=== PATIENT | female | born 1995 | race African-American/Black ===

== ENCOUNTER 2018-09-27 15:59 | Inpatient (IN) | payer OTHER, MEDICAID ==
[2018-09-27] MEDS ORDERED: BUTORPHANOL 2 MG INJ IV ×2 (16:30)
[2018-09-27] MEDS ORDERED: CARBOPROST 250 MCG INJ IM (16:30)
[2018-09-27] MEDS ORDERED: OXYTOCIN 30 UNITS/LR 500 ML IV (16:30)
[2018-09-27] MEDS ORDERED: METHYLERGONOVINE 0.2 MG INJ IM (16:30)
[2018-09-27] MEDS ORDERED: LIDOCAINE 1% (MPF) 30 ML INJ INJ (16:30)
[2018-09-27] MEDS ORDERED: MISOPROSTOL 200 MCG TAB PR (16:30)
[2018-09-27 17:05] LABS: ADD MAN DIFF? NO
[2018-09-27 17:06] LABS: BASOPHILS % 0.2 % (0.0-2.0); EOSINOPHILS # 0.1 10^3/ul (0.0-0.5); EOSINOPHILS % 0.5 % (0.0-7.0); HEMATOCRIT 34.3 % (37.0-47.0); LYMPHOCYTES # 2.2 10^3/ul (0.8-2.9); LYMPHOCYTES % 16.6 % (15.0-51.0); MEAN CORPUSCULAR HEMOGLOBIN 27.1 pg (29.0-33.0); MEAN CORPUSCULAR HGB CONC 32.1 g/dl (32.0-37.0); MEAN CORPUSCULAR VOLUME 84.5 fl (82.0-101.0); MEAN PLATELET VOLUME 10.6 fl (7.4-10.4); MONOCYTE # 0.8 10^3/ul (0.3-0.9); MONOCYTES % 6.2 % (0.0-11.0); NEUTROPHIL # 9.9 10^3/ul (1.6-7.5); NEUTROPHILS % 76.2 % (39.0-77.0); PLATELET COUNT 278 10^3/UL (140-415); RED BLOOD COUNT 4.06 10^6/ul (4.20-5.40); RED CELL DISTRIBUTION WIDTH 16.3 % (11.5-14.5)
[2018-09-27 17:28] LABS: INR 0.86; PROTIME 11.8 Sec (11.9-14.9); PT RATIO 0.9
[2018-09-27 17:29] LABS: PARTIAL THROMBOPLASTIN TIME 25.6 Sec (23.0-35.0)
[2018-09-27] MEDS: LACTATED RINGER'S 1,000 ML IV ×3 (17:37→18:28)
[2018-09-27] MEDS ORDERED: FENTAnyl 2MCG/ML-ROPIV 0.2% 100 ML (18:12)
[2018-09-27] MEDS ORDERED: FENTAnyl 50 MCG/ML VIAL (18:12)
[2018-09-27 18:27] LABS: HEPATITIS B SURFACE ANTIGEN NEGATIVE (NEGATIVE)
[2018-09-27] MEDS ORDERED: NALOXONE (0.4 MG/ML) INJ IV (18:30)
[2018-09-27] MEDS: FAMOTIDINE 20 MG INJ IV (18:32)
[2018-09-27] MEDS: AMPICILLIN 2 GM/NS (PMX) 100 ML IV (18:37)
[2018-09-27 18:42] LABS: RAPID PLASMA REAGIN NONREACTIVE (NR)
[2018-09-27] MEDS: AMPICILLIN 1 GM/NS (PMX) 50 ML IV (22:18)
[2018-09-27] MEDS ORDERED: MINERAL OIL LIGHT 10 ML VIAL TOP (23:30)
[2018-09-28] MEDS: LACTATED RINGER'S 1,000 ML IV (00:11)
[2018-09-28 00:26] LABS: AMPHETAMINE/METHAMPHETAMINE Negative (NEGATIVE); BARBITURATES Negative (NEGATIVE); BENZODIAZEPINES Negative (NEGATIVE); CANNABINOIDS Positive (NEGATIVE); COCAINE Negative (NEGATIVE); OPIATES Negative (NEGATIVE)
[2018-09-28] MEDS: FENTAnyl 2MCG/ML-ROPIV 0.2% 100 ML BAG EPI (02:05)
[2018-09-28] MEDS: AMPICILLIN 1 GM/NS (PMX) 50 ML IV (03:35)
[2018-09-28] MEDS: OXYTOCIN 30 UNITS/LR 500 ML IV ×3 (03:35→08:58)
[2018-09-28] MEDS: FAMOTIDINE 20 MG INJ IV (04:20)
[2018-09-28] MEDS: ONDANSETRON 4 MG INJ IV (04:43)
[2018-09-28] MEDS: BENZOCAINE 20% 56 ML SPRAY TOP (06:46)
[2018-09-28] MEDS: LANOLIN HPA 1 PKT TOP (06:46)
[2018-09-28] MEDS: WITCH HAZEL/GLYCERIN PAD PR (06:46)
[2018-09-28] MEDS ORDERED: MISOPROSTOL 200 MCG TAB PR (07:00)
[2018-09-28] MEDS ORDERED: ZOLPIDEM 5 MG TAB PO (07:00)
[2018-09-28] MEDS ORDERED: OXYTOCIN 30 UNITS/LR 500 ML IV (07:00)
[2018-09-28] MEDS ORDERED: METHYLERGONOVINE 0.2 MG INJ IM (07:00)
[2018-09-28] MEDS ORDERED: CARBOPROST 250 MCG INJ IM (07:00)
[2018-09-28] MEDS ORDERED: OXYCODONE/ASPIRIN (4.88/325) TAB PO ×2 (07:00)
[2018-09-28] MEDS: SENNA/DOCUSATE NA (8.6MG/50MG) TAB PO ×2 (08:57→20:38)
[2018-09-28] MEDS ORDERED: IBUPROFEN 600 MG TAB PO (12:00)
[2018-09-28] MEDS: IBUPROFEN 600 MG TAB PO ×3 (12:54→23:45)
[2018-09-28] MEDS: CEPHALEXIN 500 MG CAP PO ×2 (14:49→20:38)
[2018-09-29] MEDS: CEPHALEXIN 500 MG CAP PO ×4 (03:27→20:45)
[2018-09-29] MEDS: IBUPROFEN 600 MG TAB PO ×4 (05:43→23:51)
[2018-09-29 08:35] LABS: ADD MAN DIFF? NO
[2018-09-29 08:46] LABS: BASOPHIL # 0.1 10^3/ul (0.0-0.1); BASOPHILS % 0.4 % (0.0-2.0); EOSINOPHILS # 0.2 10^3/ul (0.0-0.5); EOSINOPHILS % 1.6 % (0.0-7.0); HEMATOCRIT 33.7 % (37.0-47.0); HEMOGLOBIN 10.7 g/dl (12.0-16.0); LYMPHOCYTES # 3.6 10^3/ul (0.8-2.9); LYMPHOCYTES % 31.7 % (15.0-51.0); MEAN CORPUSCULAR HEMOGLOBIN 27.5 pg (29.0-33.0); MEAN CORPUSCULAR HGB CONC 31.8 g/dl (32.0-37.0); MEAN CORPUSCULAR VOLUME 86.6 fl (82.0-101.0); MEAN PLATELET VOLUME 10.9 fl (7.4-10.4); MONOCYTE # 0.7 10^3/ul (0.3-0.9); MONOCYTES % 6.5 % (0.0-11.0); NEUTROPHIL # 6.8 10^3/ul (1.6-7.5); NEUTROPHILS % 59.5 % (39.0-77.0); PLATELET COUNT 256 10^3/UL (140-415); RED BLOOD COUNT 3.89 10^6/ul (4.20-5.40); RED CELL DISTRIBUTION WIDTH 16.3 % (11.5-14.5)
[2018-09-29 08:46] LABS: WHITE BLOOD COUNT 11.5 10^3/ul (4.8-10.8)
[2018-09-29] MEDS: SENNA/DOCUSATE NA (8.6MG/50MG) TAB PO ×2 (08:58→20:45)
[2018-09-29] MEDS: LANOLIN HPA 1 PKT TOP (19:52)
[2018-09-30] MEDS: CEPHALEXIN 500 MG CAP PO ×2 (03:03→09:00)
[2018-09-30] MEDS: IBUPROFEN 600 MG TAB PO ×2 (06:03→12:11)
[2018-09-30] MEDS: SENNA/DOCUSATE NA (8.6MG/50MG) TAB PO (09:00)
[2018-09-30] MEDS: DIPHTH/TET/ACEL PERTUSS (ADULT) 0.5 ML VIAL IM* (09:01)
[2018-09-30] MEDS: LANOLIN HPA 1 PKT TOP (12:11)
== END 2018-09-30 13:50 | disposition home or self-care (01) | DRG 807 ==
LOC: OBT 15:59 → PP1 09-28 06:01 → L-D 16:00 → OBT 16:15 → L-D 16:15
PROVIDERS: Obstetrics & Gynecology
PROC: 10E0XZZ Delivery of Products of Conception, External Approach (ICD-10-PCS; principal; 2018-09-28)
PROC: 0UQMXZZ Repair Vulva, External Approach (ICD-10-PCS; 2018-09-28)
DX: O36.5930 Maternal care for other known or suspected poor fetal growth, third trimester, not applicable or unspecified (principal); Z37.0 Single live birth; O71.82 Other specified trauma to perineum and vulva; O99.824 Streptococcus B carrier state complicating childbirth; Z3A.40 40 weeks gestation of pregnancy
CPT/HCPCS: 62322; 80307; 85025; 85610; 85730; 86592; 86850; 86900; 86901; 87340; 99464